=== PATIENT | male | born 1980 | race African-American/Black ===

== ENCOUNTER 2019-06-28 11:42 | Emergency (ER) | payer MEDICAID ==
[~2019-06-28] VITALS: Ht 177.8 cm; Wt 75.0 kg
[2019-06-28] MEDS ORDERED: IBUPROFEN 600MG TABLET PO ONE (14:45)
[2019-06-28 14:50] VITALS: BP 129/90
== END 2019-06-28 15:10 | disposition home or self-care (01) ==
LOC: ER 11:42
DX: M54.5 Low back pain (principal); F17.210 Nicotine dependence, cigarettes, uncomplicated; F12.10 Cannabis abuse, uncomplicated; V43.52XA Car driver injured in collision with other type car in traffic accident, initial encounter; Y93.89 Activity, other specified; Y92.488 Other paved roadways as the place of occurrence of the external cause
CPT/HCPCS: 99282